=== PATIENT | female | born 2005 | race Two or more races ===

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

== ENCOUNTER 2025-01-20 15:17 | Emergency (ER) | payer OTHER, SELFPAY ==
[2025-01-20 15:21] VITALS: BP 145/68; PULSE 100; RESP 20; TEMP 36.6; O2SAT 100
--- NOTE | 2025-01-20 16:36 | ED_ITS ---
HPI - General Adult General Chief complaint: Upper Respiratory Infection Stated complaint: Cough Source: patient Mode of arrival: ambulatory Limitations: no limitations History of Present Illness HPI narrative: Patient presents for evaluation of sinus symptoms. Symptom onset yesterday. Symptoms include sinus congestion, mucopurulent discharge from the nares, and hot flashes. She has a history of bacterial sinusitis and this feels similar. No cough, SOB, nausea, vomiting or diarrhea. She does not smoke. No recent sick contacts to her knowledge. Related Data Home Medications ?Medication ?Instructions ?Recorded ?Confirmed ?Last Taken ?Type albuterol sulfate 90 mcg/actuation 2 puff inhalation Q6H PRN 12/16/23 10/25/24 Unknown History aerosol inhaler Shortness Of Breath Or Wheezing Allergies Allergy/AdvReac Type Severity Reaction Status Date / Time ibuprofen Allergy Severe Swelling Verified 01/20/25 15:26 of Lip/Tongue/Throat Review of Systems Review of Systems: CONSTITUTIONAL: Reports hot flashes. Denies chills, or sweats. EYES: Denies visual changes, redness, or discharge. ENT: Reports sinus congestion and mucopurulent discharge in nares. Denies sore throat or otalgia. CARDIOVASCULAR: Denies chest pain, palpitations, or edema. RESPIRATORY: Denies cough or dyspnea. GASTROINTESTINAL: Denies abdominal pain, nausea, vomiting, or diarrhea. GENITOURINARY: Denies dysuria or hematuria. SKIN: Denies rash or itching. MUSCULOSKELETAL: Denies back pain, joint pain, or myalgia. NEUROLOGIC: Denies headache, numbness, dizziness, or weakness. PSYCHIATRIC: Denies anxiety or depression. [facility] Past Medical History Medical History Ear infection UTI (urinary tract infection) Anxiety Hypertension Asthma Surgical History Surgical History No pertinent past surgical history Family History Family History Mother Family history non-contributory Social History Social History Smoking status: Current every day smoker Tobacco type: e-cigarettes/vaping Alcohol intake: current Alcohol use details: social but rare Substance use type: does not use Living arrangements: with family Gender identity (if verbalized by the patient): Female Exam Narrative: GENERAL: Well-appearing, well-nourished, and in no acute distress. HEAD: Normocephalic, atraumatic. EYES: PERRLA and EOMI. ENT: Nares clear, no rhinorrhea or epistaxis. Mucous membranes moist. Oropharynx without tonsillar hypertrophy exudate or other lesions. Bilateral TMs pearly chacon nonbulging NECK: Supple. No adenopathy or masses. No carotid bruits or JVD CHEST: Clear to auscultation. No respiratory distress. No wheezes rales or rhonchi HEART: Regular rate and rhythm. No murmur heard. Normal peripheral pulses. ABDOMEN: Soft, nontender, nondistended, normal active bowel sounds. EXTREMITIES: Normal range of motion. No edema. SKIN: Warm, dry, no rash. NEURO: No focal deficits. Alert and oriented x3. PSYCH: Normal mood and affect. Course Course Emergency Course: This is a 19-year-old female who presented for evaluation of sinus symptoms. She meets criteria for bacterial sinusitis based upon mucopurulent nature of her discharge. Increase hydration. [id number] agents for symptom management. Follow up with primary provider. Go to the ER for worsening symptoms. Patient in agreement with plan of care Level of Care: Express Care Visit Vital Signs Vital signs: Vital Signs Temperature 36.6 C 01/20/25 15:21 Pulse Rate 100 01/20/25 15:21 Respiratory Rate 20 01/20/25 15:21 Blood Pressure 145/68 H 01/20/25 15:21 Pulse Oximetry 100 01/20/25 15:21 Oxygen Delivery Room Air 01/20/25 15:21 Temperature 36.6 C 01/20/25 15:21 Pulse Rate 100 01/20/25 15:21 Respiratory Rate 20 01/20/25 15:21 Blood Pressure 145/68 H 01/20/25 15:21 Pulse Oximetry 100 01/20/25 15:21 Oxygen Delivery Room Air 01/20/25 15:21 Medical Decision Making Vital Signs Vital Signs: Vital Signs Temperature 36.6 C 01/20/25 15:21 Pulse Rate 100 01/20/25 15:21 Respiratory Rate 20 01/20/25 15:21 Blood Pressure 145/68 H 01/20/25 15:21 Pulse Oximetry 100 01/20/25 15:21 Oxygen Delivery Room Air 01/20/25 15:21 Temperature 36.6 C 01/20/25 15:21 Pulse Rate 100 01/20/25 15:21 Respiratory Rate 20 01/20/25 15:21 Blood Pressure 145/68 H 01/20/25 15:21 Pulse Oximetry 100 01/20/25 15:21 Oxygen Delivery Room Air 01/20/25 15:21 Discharge Plan Discharge Clinical Impression: Sinusitis Patient Disposition: Home, Self-Care Condition: Stable Instructions: Antibiotic Form, Sinusitis (ED) Patient Language: Japanese Prescriptions: New amoxicillin-pot clavulanate 875-125 mg tablet 1 tablet PO Q12H Qty: 20 0RF No Action albuterol sulfate 90 mcg/actuation HFA aerosol inhaler 2 puff INHALATION Q6H PRN (Reason: Shortness Of Breath Or Wheezing) Follow-up/Referrals: Johanna Cannon DO [Physician] - Stand Alone Forms: Work/School Release IP Time of Disposition: 16:31
--- OUTSIDE RECORDS SUMMARY | 2025-01-20 17:47 | XMS_ITS | Continuity of Care Document ---
Author Name Radha Rivera Address [address] [place] [address] Organization Unknown Address [address] [place] [address] Medications No known medications Problems No known problems
--- OUTSIDE RECORDS SUMMARY | 2025-01-20 17:47 | XMS_ITS | Clinical Summary ---
Author Organization [facility] Address [address] [place] [address] Care Team Providers Care Tube Drawer Name Role Phone Unknown, Notinfile Primary Care Provider Unavail able Allergies Active Allergy Reactions Criticality Noted Date Comments Ibuprofen Vomiting Low 08/23/2024 Medications albuterol HFA (PROVENTIL HFA,VENTOLIN HFA,PROAIR HFA) 90 mcg/actuation inhaler Inhale 2 puffs every 4 (four) hours as needed for wheezing 1 each 10/31/2024 10/31/20 25 Active Active Problems No known active problems Encounters Date Type Department Care Team Description 10/31/2024 2:56 PM ARTS MANAGER - 10/31/2024 5:02 PM ARTS MANAGER Emergency [facility] Emergency Department 1 [place] [address] Chest pain, unspecified type (Primary Dx) Discharge Disposition: Discharge to home or self care 10/31/2024 12:45 PM ARTS MANAGER Office Visit [facility] [place] [address] [place] [address] Anum Gutierrez NP Chest pain, unspecified type (Primary Dx) from Last 3 Months Medical History Medical History Date Comments Asthma Social History Tobacco Use Types Packs/Day Years Used Date Smoking Tobacco: Never Assessed Personal Safety Answer Date Recorded Have you ever been in or are you currently in a harmful physical or emotional relationship or is someone making you feel afraid or unsafe? Denies 10/31/2024 Comments No Sex and Gender Information Value Date Recorded Sex Assigned at Not on file Legal Sex Female 8:19 PM CDT Gender Identity Female 09/01/2022 11:19 PM CDT Sexual Orientation Not on file Obstetrics History Growth Chart Information Age Height Weight Ewpxvl-ksp-[id number] th Percentile BMI Percentile Head Circum Head Circum Percentile Date 18 years 167.6 cm (5' 6 ) 99.8 kg (220 lb) 97.30%* 2023 18 years 167.6 cm (5' 6 ) 90.7 kg (200 lb) 95.80%* 2023 16 years 167.6 cm (5' 6 ) 81.6 kg (180 lb) 94.57%* 2021 * [facility] (Girls, 2-20 Years) Last Filed Vital Signs Vital Sign Reading Time Taken Comments Blood Pressure 121/72 10/31/2024 4:01 PM ARTS MANAGER Pulse 72 10/31/2024 4:01 PM ARTS MANAGER Temperature 36.1 C (97 F) 10/31/2024 4:01 PM ARTS MANAGER Respiratory Rate 18 10/31/2024 4:01 PM ARTS MANAGER Oxygen Saturation 98% 10/31/2024 4:01 PM ARTS MANAGER Inhaled Oxygen Concentration - - Weight 99.8 kg (220 lb) 10/31/2024 11:19 AM ARTS MANAGER Height 167.6 cm (5' 6 ) 10/31/2024 11:19 AM ARTS MANAGER Body Mass Index 35.51 10/31/2024 11:19 AM ARTS MANAGER Body Mass Index Percentile 97.30% 10/31/2024 11: 19 AM ARTS MANAGER Growth Chart: [facility] (Girls, 2- 20 Years) Plan of Treatment Health Maintenance Due Date Last Done Comments Depression Screening 2005 Hepatitis C Screening 2005 DTaP/Tdap/Td Vaccine (1 - Tdap) 2016 Varicella Vaccines (1 of 2 - 13+ 2-dose series) 2018 HPV Vaccines (1 - 3-dose series) 2020 Meningococcal B Vaccine (1 o f 2 - Standard) 2021 Hepatitis B Screening 2023 Regular Well Visit/Exam 18-64 2023 Influenza Vaccine (#1) 2024 Pneumococcal vaccine <65 (1 of 2 - PCV) 2024 Meningococcal Vaccine Aged Out No gretchen tonia eligible based on patient's age to complete this topic Procedures Procedure Name Priority Date/Time Associated Diagnosis Comments EGFR STAT 10/31/2024 3:57 PM ARTS MANAGER COMPREHENSIVE METABOLIC PANEL STAT 10/31/2024 3:57 PM ARTS MANAGER TROPONIN T HIGH-SENSITIVITY SERIES (BASELINE, 2HR, 4HR, 6HR) STAT 10/31/2024 3:57 PM ARTS MANAGER DIFFERENTIAL AUTO STAT 10/31/2024 12: 37 PM ARTS MANAGER CBC WITH AUTO DIFFERENTIAL STAT 10/31/2024 12:37 PM ARTS MANAGER XR CHEST PA LATERAL 2 VIEWS ED 10/31/2024 11:31 AM ARTS MANAGER ECG 12-LEAD STAT 10/31/2024 11:14 AM ARTS MANAGER from Last 3 Months Results * Troponin T high-sensitivity series (baseline, 2hr, 4hr, 6hr) (10/31/2024 3:57 PM ARTS MANAGER) Trop T hs <6 <=14 ng/L Comment: Interpretive Data For further hscTnT resources including the diagnostic algorithm and an aid in interpretation, copy and paste this link: https://nrl.testcatalog.org/show/hsTrop Current Interpretive Data last revised 2020. Blood 10/31/2024 3:57 PM ARTS MANAGER 10/31/2024 4:00 PM ARTS MANAGER us Santiago Hernandez AUTOMATIC DISPENSER MECHANIC LAB BLOOD ORDERABLES Final Result [facility] 1 [facility] Department [place] [address] * eGFR (10/31/2024 3:57 PM ARTS MANAGER) eGFR 78 >=60 mL/min/1. 73 m2 Comment: Interpretive Data Reference Interval Normal >/= 90 mL/min/1.73m2 Mildly decreased* 60 - 89 mL/min/1.73m2 Mildly to moderately decreased 45 - 59 mL/min/1.73m2 Moderately to severely decreased 30 - 44 mL/min/1.73m2 Severely decreased 15 - 29 mL/min/1.73m2 Kidney Failure < 15 mL/min/1.73m2 *Relative to young adult level Estimated glomerular filtration rate is determined by the 2020 CKD-EPI equation recommended by the National Kidney Foundation (A Unifying Approach to GFR Estimation: Recommendations of the NKF-ASK Task Force on Reassessing the Inclusion of Race in Diagnosing Kidney Disease, JASN 202). The CKD-EPI equation should not be used for patients with unstable renal function and has not been validated in children and those over 70. Current interpretive data was last reviewed 2021. Blood 10/31/2024 3:57 PM ARTS MANAGER 10/31/2024 4:00 PM ARTS MANAGER Santiago Hernandez NP LAB BLOOD ORDERABLES Final Result [facility] ([place]) 1 [facility] Department [place] [address] * (ABNORMAL) Comprehensive metabolic panel (10/31/2024 3:57 PM ARTS MANAGER) Sodium 138 135 - 145 mmol/L Potassium, pl 3.8 3.3 - 4.9 mmol/L [facility] Chloride 103 97 - 110 mmol/L [facility] ([facility]) CO2 23 22 - 32 mmol/L [facility]) Anion gap 12 2 - 15 mmol/L [facility] BUN 9 6 - 25 mg/dL [facility] Creatinine 1.06(H) 0.40 - 1.00 mg/dL [facility] ([facility]) Glucose 114 70 - 199 mg/dL [facility] ([facility]) Comment: Interpretive Data Fasting glucose >/= 126 mg/dl is diagnostic for diabetes. Fasting is defined as no caloric intake for at least 8 hours. Fasting glucose between 100 mg/dl to 125 mg/dl is diagnostic of prediabetes. In a patient with classic symptoms of hyperglycemia or hyperglycemic crisis, a random glucose >/= 200 mg/dl is diagnostic for diabetes. In the absence of unequivocal hyperglycemia, results should be confirmed by repeat testing. The classification and Diagnosis of Diabetes Diabetes Care 2021; 46: S19-S40. Current interpretive data was last revised 2022. Calcium 9.5 8.5 - 10.3 mg/dL [facility] ([facility]) Bilirubin, total 0.2 0.1 - 1.2 mg/dL [facility] ([place]) Protein, pl 7.3 6.5 - 8.5 g/dL [facility] ([place]) Albumin 4.2 3.5 - 5.0 g/dL [facility] ([place]) Alk phos 84 70 - 260 Units/L [facility] ([place]) ALT 17 7 - 45 Units/L [facility] ([place]) AST 16 10 - 45 Units/L [facility] ([place]) Blood 10/31/2024 3:57 PM ARTS MANAGER 10/31/2024 4:00 PM ARTS MANAGER Santiago Hernandez NP LAB BLOOD ORDERABLES Final Result [facility] 1 [facility] Department [place] [address] * (ABNORMAL) Differential, auto (10/31/2024 12:37 PM ARTS MANAGER) Neutrophil abs 5.9 1.5 - 6.5 K/cumm Imm gran abs 0.1 0.0 - 0.1 K/cumm [facility] ([facility]) Lymphocyte abs 2.0 0.8 - 3.3 K/cumm [facility] ([place]) Monocyte abs 0.7 0.2 - 0.8 K/cumm [facility] ([place]) Eosinophil abs 0.6(H) 0.0 - 0.5 K/cumm [facility] ([place]) Basophil abs 0.1 0.0 - 0.1 K/cumm [facility] ([facility]) Neutrophil pct 63.6 % [facility] ([facility]) Comment: Interpretive Data Percent cell count reference ranges are not reported, since discordance with absolute values may lead to misinterpretation of CBC data. Current Interpretive Data was last revised on 2018. Imm gran pct 0.6 % [facility] ([facility]) Comment: Interpretive Data Percent cell count reference ranges are not reported, since discordance with absolute values may lead to misinterpretation of CBC data. Current Interpretive Data was last revised on 2018. Lymphocyte pct 21.8 % [facility] ([facility]) Comment: Interpretive Data Percent cell count reference ranges are not reported, since discordance with absolute values may lead to misinterpretation of CBC data. Current Interpretive Data was last revised on 2018. Monocyte pct 7.2 % [facility] ([place]) Comment: Interpretive Data Percent cell count reference ranges are not reported, since discordance with absolute values may lead to misinterpretation of CBC data. Current Interpretive Data was last revised on 2018. Eosinophil pct 5.9 % [facility] ([facility]) Comment: Interpretive Data Percent cell count reference ranges are not reported, since discordance with absolute values may lead to misinterpretation of CBC data. Current Interpretive Data was last revised on 2018. Basophil pct 0.9 % [facility] ([place]) Comment: Interpretive Data Percent cell count reference ranges are not reported, since discordance with absolute values may lead to misinterpretation of CBC data. Current Interpretive Data was last revised on 2018. Blood 10/31/2024 12:3 7 PM ARTS MANAGER 10/31/2024 12:40 PM ARTS MANAGER us Bhupinder Mahan MD LAB BLOOD ORDERABLES Final Result [facility] ([place]) 1 [facility] Department [place] [address] * CBC with auto differential (10/31/2024 12:37 PM ARTS MANAGER) WBC 9.3 3.8 - 9.9 K/cumm Hgb 12.6 11.9 - 15.5 g/dL [facility] ([place]) Hct 38.8 35.6 - 45.5 % [facility] ([facility]) Plt 337 150 - 400 K/cumm [facility] ([facility]) MPV 10.7 9.1 - 12.3 fL [facility] ([facility]) RBC 4.65 3.90 - 5.20 M/cumm [facility] ([place]) MCV 83.4 81.3 - 96.4 fL [facility] ([place]) MCH 27.1 27.1 - 33.3 pg [facility] ([facility]) MCHC 32.5 32.3 - 35.7 g/dL [facility] ([place]) RDW CV 13.9 11.1 - 14.9 % [facility] ([place]) RDW SD 42.1 35.7 - 48.1 fL [facility] ([place]) NRBC abs 0.00 0.00 - 0.01 K/cumm [facility] ([facility]) Blood (Blood, Venous) 10/31/2024 12:37 PM ARTS MANAGER 10/31/2024 12:40 PM ARTS MANAGER us Bhupinder Mahan MD LAB BLOOD ORDERABLES Final Result Performing Organization Address City/State/[facility] Co de Phone Number [facility] ([place]) 1 [facility] Department [place] [address] * XR Chest PA Lateral 2 Views (10/31/2024 11:31 AM ARTS MANAGER) Anatomical Region Laterality Modality Body, Chest N/A Computed Radiogr aphy 10/31/2024 11:5 6 AM ARTS MANAGER Narrative 10/31/2024 11:58 AM ARTS MANAGER EXAM DESCRIPTION: XR CHEST PA LATERAL 2 VIEWS REASON FOR STUDY: chest pain sudden chest pain this morning approx 0145 and it felt like heartburn. States a second sudden sharp pain at 0840 over whole chest. States she was at work when it happened. States since it happened the second time it has stayed sharp feeling and some pain in L side of upper back. TECHNIQUE: 2 radiographic view(s) of the chest. COMPARISON: 09/01/2022 FINDINGS: LUNGS: No focal opacity, pleural effusion, or pneumothorax. HEART/MEDIASTINUM: Cardiac silhouette normal in size. Mediastinal and hilar contours appear normal. LINES/TUBES: None. BONES: No acute osseous abnormality. IMPRESSION: No acute cardiopulmonary abnormality. THIS IS AN ELECTRONICALLY VERIFIED FINAL REPORT 10/31/2024 11:58 AM - Electronically signed by Jamie Plasencia M.D. KR: YUE Report ID: [id number] Reading Location: [id number] Procedure Note Jamie Plasencia MD - 10/31/2024 EXAM DESCRIPTION: XR CHEST PA LATERAL 2 VIEWS REASON FOR STUDY: chest pain sudden chest pain this morning approx 0145 and it felt like heartburn. States a second sudden sharp pain at 0840 over whole chest. States she wasat work when it happened. States since it happened the second time it hasstayed sharp feeling and some pain in L side of upper back. TECHNIQUE: 2 radiographic view(s) of the chest. COMPARISON: 09/01/2022 FINDINGS: LUNGS: No focal opacity, pleural effusion, or pneumothorax. HEART/MEDIASTINUM: Cardiac silhouette normal in size. Mediastinal andhilar contours appear normal. LINES/TUBES: None. BONES: No acute osseous abnormality. IMPRESSION: No acute cardiopulmonary abnormality. THIS IS AN ELECTRONICALLY VERIFIED FINAL REPORT 10/31/2024 11:58 AM - Electronically signed by Jamie Plasencia M.D. KR: YUE Report ID: [id number] Reading Location: [place] [id number] Bhupinder Mahan MD IMG XR PROCEDURES Final Res ult * ECG 12 lead (10/31/2024 11:14 AM ARTS MANAGER) 10/31/2024 11:1 4 AM ARTS MANAGER Narrative [facility] - 10/31/2024 12:50 PM ARTS MANAGER Vent Rate: 77 bpm RR Interval: 778 msec [place] Interval: 125 msec QRS Duration: 86 msec QT Interval: 354 msec QTC Interval: 385 msec P-R-T Exmore: 44 - 64 - 37 degrees IMPRESSION: SINUS RHYTHM WITH SINUS ARRHYTHMIA NORMAL ECG Electronically Signed By: Hernando Burgess MD Bhupinder Mahan MD ECG ORDERABLES Final Resul t [facility] from Last 3 Months Insurance [facility] HMO [facility] H[facility] Care Teams Tube Drawer Relationship Specialty Start Date End Date Unknown, Notinfile PCP - General 09/01/22
--- OUTSIDE RECORDS SUMMARY | 2025-01-20 17:47 | XMS_ITS | Continuity of Care Document ---
Author Name Radha Rivera Address [address] [place] [address] Organization Unknown Address [address] [place] [address] Medications No known medications Problems No known problems
--- OUTSIDE RECORDS SUMMARY | 2025-01-20 17:47 | XMS_ITS | Referral Summary ---
Author Organization [facility] Address [address] [place] [address] Care Team Providers Care Mobile Patrol Officer Name Role Phone Unknown, Notinfile Primary Care Provider Unavail able Encounters Date Type Department Care Team Description 10/31/2024 2:56 PM OCCASIONAL CAREGIVER - 10/31/2024 5:02 PM OCCASIONAL CAREGIVER Emergency [facility] Emergency Department 1 [place] [address] Chest pain, unspecified type (Primary Dx) Discharge Disposition: Discharge to home or self care 10/31/2024 12:45 PM OCCASIONAL CAREGIVER Office Visit [facility] [place] [address] [place] [place] [phone] Anum Gutierrez NP Chest pain, unspecified type (Primary Dx) from Last 3 Months Allergies Active Allergy Reactions Criticality Noted Date Comments Ibuprofen Vomiting Low 08/23/2024 Medications albuterol HFA (PROVENTIL HFA,VENTOLIN HFA,PROAIR HFA) 90 mcg/actuation inhaler Inhale 2 puffs every 4 (four) hours as needed for wheezing 1 each 10/31/2024 10/31/20 25 Active Active Problems No known active problems Social History Tobacco Use Types Packs/Day Years [...] PM CDT Sexual Orientation Not on file Last Filed Vital Signs Vital Sign Reading Time Taken Comments Blood Pressure 121/72 10/31/2024 4:01 PM OCCASIONAL CAREGIVER Pulse 72 10/31/2024 4:01 PM OCCASIONAL CAREGIVER Temperature 36.1 C (97 F) 10/31/2024 4:01 PM OCCASIONAL CAREGIVER Respiratory Rate 18 10/31/2024 4:01 PM OCCASIONAL CAREGIVER Oxygen Saturation 98% 10/31/2024 4:01 PM OCCASIONAL CAREGIVER Inhaled Oxygen Concentration - - Weight 99.8 kg (220 lb) 10/31/2024 11:19 AM OCCASIONAL CAREGIVER Height 167.6 cm (5' 6 ) 10/31/2024 11:19 AM OCCASIONAL CAREGIVER Body Mass Index 35.51 10/31/2024 11:19 AM OCCASIONAL CAREGIVER Body Mass Index Percentile 97.30% 10/31/2024 11: 19 AM OCCASIONAL CAREGIVER Growth Chart: [facility] (Girls, 2- 20 Years) Plan of Treatment Not on file Procedures Procedure Name Priority Date/Time Associated Diagnosis Comments EGFR STAT 10/31/2024 3:57 PM OCCASIONAL CAREGIVER COMPREHENSIVE METABOLIC PANEL STAT 10/31/2024 3:57 PM OCCASIONAL CAREGIVER TROPONIN T HIGH-SENSITIVITY SERIES (BASELINE, 2HR, 4HR, 6HR) STAT 10/31/2024 3:57 PM OCCASIONAL CAREGIVER DIFFERENTIAL AUTO STAT 10/31/2024 12: 37 PM OCCASIONAL CAREGIVER CBC WITH AUTO DIFFERENTIAL STAT 10/31/2024 12:37 PM OCCASIONAL CAREGIVER XR CHEST PA LATERAL 2 VIEWS ED 10/31/2024 11:31 AM OCCASIONAL CAREGIVER ECG 12-LEAD STAT 10/31/2024 11:14 AM OCCASIONAL CAREGIVER from Last 3 Months Results * Troponin T high-sensitivity series (baseline, 2hr, 4hr, 6hr) (10/31/2024 3:57 PM OCCASIONAL CAREGIVER) Trop T hs <6 <=14 ng/L Comment: Interpretive Data For further hscTnT resources including the diagnostic algorithm and an aid in interpretation, copy and paste this link: https://nrl.testcatalog.org/show/hsTrop Current Interpretive Data last revised 2020. Blood 10/31/2024 3:57 PM OCCASIONAL CAREGIVER 10/31/2024 4:00 PM OCCASIONAL CAREGIVER us Santiago Hernandez NP LAB BLOOD ORDERABLES Final Result [facility] ([place]) 1 [facility] [address] * eGFR (10/31/2024 3:57 PM OCCASIONAL CAREGIVER) eGFR 78 >=60 mL/min/1. 73 m2 Comment: [...] of Race in Diagnosing Kidney Disease, JASN 2020). The CKD-EPI equation should not be used for patients with unstable renal function and has not been validated in children and those over 70. Current interpretive data was last reviewed 2021. Blood 10/31/2024 3:57 PM OCCASIONAL CAREGIVER 10/31/2024 4:00 PM OCCASIONAL CAREGIVER us Santiago Hernandez NP LAB BLOOD ORDERABLES Final Result [facility] ([place]) 1 [facility] [address] * (ABNORMAL) Comprehensive metabolic panel (10/31/2024 3:57 PM OCCASIONAL CAREGIVER) Sodium 138 135 - 145 mmol/L Potassium, pl 3.8 3.3 - 4.9 mmol/L [facility] ([facility]) Chloride 103 97 - 110 mmol/L [facility] ([facility]) CO2 23 22 - 32 mmol/L [facility] ([facility]) Anion gap 12 2 - 15 mmol/L [facility] ([place]) BUN 9 6 - 25 mg/dL [facility] ([facility]) Creatinine 1.06(H) 0.40 - 1.00 mg/dL [facility] ([facility]) Glucose 114 70 - 199 mg/dL [facility] ([facility]) Comment: Interpretive Data Fasting glucose [...] [facility] ([facility]) Blood 10/31/2024 3:57 PM OCCASIONAL CAREGIVER 10/31/2024 4:00 PM OCCASIONAL CAREGIVER us Santiago Hernandez NP LAB BLOOD ORDERABLES Final Result [facility] 1 [facility] Department [place] [address] * (ABNORMAL) Differential, auto (10/31/2024 12:37 PM OCCASIONAL CAREGIVER) Neutrophil abs 5.9 1.5 - 6.5 K/cumm [...] on 2018. Blood 10/31/2024 12:3 7 PM OCCASIONAL CAREGIVER 10/31/2024 12:40 PM OCCASIONAL CAREGIVER us Bhupinder Mahan MD LAB BLOOD ORDERABLES Final Result [facility] ([facility]) 1 [facility] Department [place] [address] * CBC with auto differential (10/31/2024 12:37 PM OCCASIONAL CAREGIVER) WBC 9.3 3.8 - 9.9 K/cumm Hgb 12.6 11.9 - 15.5 g/dL [facility] ([facility]) Hct 38.8 35.6 - 45.5 % [facility] ([facility]) Plt 337 150 - 400 K/cumm [facility] ([facility]) MPV 10.7 9.1 - 12.3 fL [facility] ([facility]) RBC 4.65 3.90 - 5.20 M/cumm [facility] ([facility]) MCV 83.4 81.3 - 96.4 fL [facility] ([facility]) MCH 27.1 27.1 - 33.3 pg [facility] ([facility]) MCHC 32.5 32.3 - 35.7 g/dL [facility] ([place]) RDW CV 13.9 11.1 - 14.9 % [facility] ([place]) RDW SD 42.1 35.7 - 48.1 fL [facility] ([facility]) NRBC abs 0.00 0.00 - 0.01 K/cumm [facility] ([facility]) Blood (Blood, Venous) 10/31/2024 12:37 PM OCCASIONAL CAREGIVER 10/31/2024 12:40 PM OCCASIONAL CAREGIVER us Bhupinder Mahan MD LAB BLOOD ORDERABLES Final Result [facility] ([place]) 1 [facility] Department [place] [address] * XR Chest PA Lateral 2 Views (10/31/2024 11:31 AM OCCASIONAL CAREGIVER) Anatomical Region Laterality Modality Body, Chest N/A Computed Radiogr aphy 10/31/2024 11:5 6 AM OCCASIONAL CAREGIVER Narrative 10/31/2024 11:58 AM OCCASIONAL CAREGIVER EXAM DESCRIPTION: XR CHEST PA LATERAL 2 [...] Jamie Plasencia M.D. KR: YUE Report ID: [id number] Reading Location: [id number] Procedure Note Jamie Plasencia MD - 10/31/2024 [...] 10/31/2024 11:58 AM - Electronically signed by Jamiebogdan Plasencia M.D. KR: KR Report ID: [id number] Reading Location: [id number] Bhupinder Mahan MD IMG XR PROCEDURES Final Res ult * ECG 12 lead (10/31/2024 11:14 AM OCCASIONAL CAREGIVER) 10/31/2024 11:1 4 AM OCCASIONAL CAREGIVER Narrative [facility] - 10/31/2024 12:50 PM OCCASIONAL CAREGIVER Vent Rate: 77 bpm RR Interval: 778 msec SC Interval: 125 msec QRS Duration: 86 msec QT Interval: 354 msec QTC Interval: 385 msec P-R-T Abbott: 44 - 64 - 37 degrees IMPRESSION: SINUS RHYTHM WITH SINUS ARRHYTHMIA NORMAL ECG Electronically Signed By: Hernando Burgess MD Bhupinder Mahan MD ECG ORDERABLES Final Resul t [facility] from Last 3 Months [facility] Care Teams Mobile Patrol Officer Relationship Specialty Start Date End Date Unknown, Notinfile PCP - General 09/01/22
== END 2025-01-20 16:42 | disposition home or self-care (01) ==
PROVIDERS: Emergency Provider Nurse Practitioner
DX: J32.9 Chronic sinusitis, unspecified (principal); F17.290 Nicotine dependence, other tobacco product, uncomplicated; I10 Essential (primary) hypertension; J45.909 Unspecified asthma, uncomplicated
CPT/HCPCS: 99213; G0463

== ENCOUNTER 2025-06-22 08:12 | Emergency (ER) | payer SELFPAY ==
--- OUTSIDE RECORDS SUMMARY | 2025-06-22 08:17 | XMS_ITS | Clinical Summary ---
Author Organization [facility] Address [address] [place] [address] Care Team Providers Care Golf Shoe Spike Assembler Name Role Phone Unknown, Notinfile Primary Care Provider Unavail able Allergies Active Allergy Reactions Criticality Noted Date Comments Ibuprofen Vomiting Low 08/23/2024 Medications albuterol HFA (PROVENTIL HFA,VENTOLIN HFA,PROAIR HFA) 90 mcg/actuation inhaler Inhale 2 puffs every 4 (four) hours as needed for wheezing 1 each 10/31/2024 10/31/20 25 Active Active Problems No known active problems Medical History Medical History Date Comments Asthma [...] History Growth Chart Information Age Height Weight Iwohch-blm-stpu th Percentile BMI Percentile Head Circum Head Circum Percentile Date 18 years 167.6 cm (5' 6) 99.8 kg (220 lb) 97.30%* 2023 18 years 167.6 cm (5' 6) 90.7 kg (200 lb) 95.80%* 2023 16 years 167.6 cm (5' 6) 81.6 kg (180 lb) 94.57%* 2021 * CDC (Girls, 2-20 Years) Last Filed Vital Signs Vital Sign Reading Time Taken Comments Blood Pressure 121/72 10/31/2024 4:01 PM ARC AIR OPERATOR Pulse 72 10/31/2024 4:01 PM ARC AIR OPERATOR Temperature 36.1 C (97 F) 10/31/2024 4:01 PM ARC AIR OPERATOR Respiratory Rate 18 10/31/2024 4:01 PM ARC AIR OPERATOR Oxygen Saturation 98% 10/31/2024 4:01 PM ARC AIR OPERATOR Inhaled Oxygen Concentration - - Weight 99.8 kg (220 lb) 10/31/2024 11:19 AM ARC AIR OPERATOR Height 167.6 cm (5' 6) 10/31/2024 11:19 AM ARC AIR OPERATOR Body Mass Index 35.51 10/31/2024 11:19 AM ARC AIR OPERATOR Body Mass Index Percentile 97.30% 10/31/2024 11: 19 AM ARC AIR OPERATOR Growth Chart: CDC (Girls, 2- 20 Years) Plan of Treatment Health Maintenance Due Date Last Done Comments Depression Screening 2005 Hepatitis C Screening 2005 DTaP/Tdap/Td Vaccine (1 - Tdap) 2016 Varicella Vaccines (1 of 2 - 13+ 2-dose series) 2018 HPV Vaccines (1 - 3-dose series) 2020 Meningococcal B Vaccine (1 o f 2 - Standard) 2021 Hepatitis B Screening 2023 Regular Well Visit/Exam 18-64 2023 Pneumococcal vaccine <65 (1 of 2 - PCV) 2024 Influenza Vaccine (#1) 2025 Meningococcal Vaccine Aged Out No gretchen tonia eligible based on patient's age to complete this topic Insurance [facility] Care Teams Golf Shoe Spike Assembler Relationship Specialty Start Date End Date Unknown, Notinfile PCP - General 09/01/22
--- OUTSIDE RECORDS SUMMARY | 2025-06-22 08:17 | XMS_ITS | Referral Summary ---
Author Organization [facility] Address [address] [place] [address] Care Team Providers Care Clean Rice Grader And Reel Tender Name Role Phone Unknown, Notinfile Primary Care [...] Comments Blood Pressure 121/72 10/31/2024 4:01 PM OFFICE NURSE Pulse 72 10/31/2024 4:01 PM OFFICE NURSE Temperature 36.1 C (97 F) 10/31/2024 4:01 PM OFFICE NURSE Respiratory Rate 18 10/31/2024 4:01 PM OFFICE NURSE Oxygen Saturation 98% 10/31/2024 4:01 PM OFFICE NURSE Inhaled Oxygen Concentration - - Weight 99.8 kg (220 lb) 10/31/2024 11:19 AM OFFICE NURSE Height 167.6 cm (5' 6) 10/31/2024 11:19 AM OFFICE NURSE Body Mass Index 35.51 10/31/2024 11:19 AM OFFICE NURSE Body Mass Index Percentile 97.30% 10/31/2024 11: 19 AM OFFICE NURSE Growth Chart: CDC (Girls, 2- 20 Years) Plan of Treatment Not on file Insurance [facility] H[facility] Care Teams Clean Rice Grader And Reel Tender Relationship Specialty Start Date End Date Unknown, Notinfile PCP - General 09/01/22
[2025-06-22 08:18] VITALS: BP 131/70; PULSE 86; RESP 20; TEMP 36.7; O2SAT 100
[2025-06-22 08:38] LABS: EDUAAPPEAR Cloudy; EDUABILI Negative (Negative); EDUABLOOD 3+ (Negative); EDUACOLOR1 Yellow; EDUAGLUCOSE Negative (Negative); EDUAKETONE Negative (Negative); EDUALEUKO 2+ (Negative); EDUANITRATE Positive (Negative); EDUAPH 6.0; EDUAPROTEIN 3+ (Negative); EDUASPGRAVITY 1.030; EDUAUROBILI 0.2
--- NOTE | 2025-06-22 08:39 | ED_ITS ---
HPI - Female Genitourinary General Chief complaint: Urogenital-Female Stated complaint: poss UTI History of Present Illness HPI Narrative: patient is a 19-year-old female, past medical history significant for recurrent UTI, anxiety, depression and hypertension, presents to [facility] with 2 day history of dysuria, frequency, urgency and some hesitancy. She denies associated flank pain, fevers, nausea vomiting or diarrhea. She notes that she was recently on cephalexin for UTI approximately 3 weeks ago, completing antibiotics as prescribed with resolution of her symptoms however they have since returned. She denies vaginal discharge or STI concerns. She has no concerns of . She denies any additional associated symptoms or modifying factors. Related Data Home Medications ?Medication ?Instructions ?Recorded ?Confirmed ?Last Taken ?Type albuterol sulfate 90 mcg/actuation 2 puff inhalation Q6H PRN 12/16/23 10/25/24 Unknown History aerosol inhaler Shortness Of Breath Or Wheezing Allergies Allergy/AdvReac Type Severity Reaction Status Date / Time ibuprofen Allergy Severe Swelling Verified 01/20/25 15:26 of Lip/Tongue/Throat Review of Systems Genitourinary: Genitourinary: Reports as per [facility] Past Medical History Medical History Ear infection UTI (urinary tract infection) Anxiety Hypertension Asthma Surgical History Surgical History No pertinent past surgical history Family History Family History Mother Family history non-contributory Social History Social History Smoking status: Current every day smoker Tobacco type: e-cigarettes/vaping Alcohol intake: current Alcohol use details: social but rare Substance use type: does not use Living arrangements: with family Gender identity (if verbalized by the patient): Female Exam Const: General: cooperative, healthy appearing, well nourished and obese Orientation/consciousness: oriented to person, oriented to place and oriented to time Limitations: no limitations HENMT: Head: normal to inspection Ears: hearing grossly normal bilaterally and external ears normal Face/Nose/Sinus: Normal external nose present Face and sinus: normal facial exam and face symmetric Mouth: Yes Normal oral and palatal mucosa present, Yes lip normal and Yes tongue normal Teeth and gingiva: dentition normal Throat: posterior oropharynx normal Eyes: General: appearance normal, both eyes and all related structures Visual Avina: normal visual avina by confrontation Alignment and Position: alignment normal Conjunctivae: conjunctivae normal Sclera: sclerae normal Cornea: corneas normal Neck: Neck: normal visual inspection, full ROM and no meningeal signs Resp: Effort & Inspection: normal respiratory effort and able to speak in complete sentences Auscultation: clear to auscultation bilaterally Cardio: Jugular venous distension: no JVD Rate: regular rate Rhythm: regular rhythm Heart sounds: S1 normal heart sound present and S2 normal heart sound present Peripheral pulses: Peripheral pulses 2+ throughout : OB/external & speculum: Deferred OB/external & speculum exam Back/Spine/Pelvis: Back: no CVA tenderness Skin: General skin exam: normal color and no rashes or lesions noted Neuro: General: oriented to person, oriented to place, oriented to time and patient oriented x3 Cranial nerves: Yes CN's II-XII intact bilaterally Gait exam (Neuro): Normal gait present Motor exam (neuro): 5/5 motor strength present throughout Course Course Emergency Course: Patient's urinalysis concerning for UTI. Will reflex for culture. Patient was most recently treated with cephalexin prior to that Augmentin for UTI. Prior urine cultures are reviewed without active growth. No sensitivity report is shown. Will treat with Cipro she completed cephalexin within the last 30 days. Patient is encouraged to follow-up with her PCP as she may require a urology referral given her recurrent UTI history. She is encouraged to proceed to the ER if she develops fevers, flank pain or vomiting. With any concerns or condition is worsening. She verbalized understanding she is agreeable to discharge plan of care Level of Care: Express Care Visit ([id number]) Vital Signs Vital signs: Vital Signs Temperature 36.7 C 06/22/25 08:18 Pulse Rate 86 06/22/25 08:18 Respiratory Rate 20 06/22/25 08:18 Blood Pressure 131/70 06/22/25 08:18 Pulse Oximetry 100 06/22/25 08:18 Oxygen Delivery Room Air 06/22/25 08:18 Temperature 36.7 C 06/22/25 08:18 Pulse Rate 86 06/22/25 08:18 Respiratory Rate 20 06/22/25 08:18 Blood Pressure 131/70 06/22/25 08:18 Pulse Oximetry 100 06/22/25 08:18 Oxygen Delivery Room Air 06/22/25 08:18 MDM - Female Genitourinary MDM Narrative Medical decision making narrative: differential diagnosis include: acute cystitis, pyelonephritis, renal colic Plan: Urine culture, Cipro b.i.d. for 7 days Differential Diagnosis Differential diagnosis: Likely urinary tract infection and other ( see above) Lab Data Labs: Lab Results 06/22/25 Range/Units 08:26 POC Urine Color Yellow POC Urine Clarity Cloudy POC Urine pH 6.0 POC Ur Specif [place] 1.030 POC Urine Protein 3+ (Negative) POC Ur Glucose (UA) Negative (Negative) POC Urine Ketones Negative (Negative) POC Urine Blood 3+ (Negative) POC Urine Nitrite Positive (Negative) POC Urine Bilirubin Negative (Negative) POC Urine Urobilinogen 0.2 POC U Leukocyte Esteras 2+ (Negative) Discharge Plan Discharge Clinical Impression: Acute cystitis with hematuria Patient Disposition: Home Condition: Stable Instructions: Antibiotic Form, Urinary Tract Infection in Women (ED) Additional Instructions: PUSH FLUIDS, COMPLETE ANTIBIOTICS PRESCRIBED. FOLLOW-UP CLOSELY WITH YOUR PRIMARY CARE PROVIDER FOLLOWING YOUR VISIT TODAY YOU HAD RECURRENT URINARY TRACT INFECTIONS AND MAY BENEFIT FROM A REFERRAL TO UROLOGY. PROCEED TO THE ER IF YOU DEVELOP FEVERS, FLANK PAIN OR VOMITING THAT PREVENTS YOU FROM KEEPING HER ANTIBIOTICS DOWN. Patient Language: Yi Prescriptions: New ciprofloxacin HCl [Cipro] 500 mg tablet 500 mg PO Q12H Qty: 14 0RF No Action albuterol sulfate 90 mcg/actuation HFA aerosol inhaler 2 puff INHALATION Q6H PRN (Reason: Shortness Of Breath Or Wheezing) Follow-up/Referrals: PHYSICIAN,CLINICAL ACCOUNT MANAGER [Primary Care Provider] - Time of Disposition: 08:48
== END 2025-06-22 08:57 | disposition home or self-care (01) ==
PROVIDERS: Emergency Provider Nurse Practitioner Family
DX: N30.01 Acute cystitis with hematuria (principal); F17.290 Nicotine dependence, other tobacco product, uncomplicated; I10 Essential (primary) hypertension; J45.909 Unspecified asthma, uncomplicated
CPT/HCPCS: 81003; 99213; G0463

== ENCOUNTER 2025-07-03 17:07 | Emergency (ER) | payer SELFPAY ==
[2025-07-03 17:10] VITALS: BP 151/71; PULSE 94; RESP 18; TEMP 36.3; O2SAT 100
--- OUTSIDE RECORDS SUMMARY | 2025-07-03 17:10 | XMS_ITS | Clinical Summary ---
Author Organization [facility] Address [address] [place] [address] Care Team Providers Care Fishing Guide Name Role Phone Unknown, Notinfile Primary Care [...] History Growth Chart Information Age Height Weight Nlvrnn-xew-rqlq th Percentile BMI Percentile Head Circum Head [...] Comments Blood Pressure 121/72 10/31/2024 4:01 PM [employer] Pulse 72 10/31/2024 4:01 PM [employer] Temperature 36.1 C (97 F) 10/31/2024 4:01 PM [employer] Respiratory Rate 18 10/31/2024 4:01 PM [employer] Oxygen Saturation 98% 10/31/2024 4:01 PM [employer] Inhaled Oxygen Concentration - - Weight 99.8 kg (220 lb) 10/31/2024 11:19 AM [employer] Height 167.6 cm (5' 6) 10/31/2024 11:19 AM [employer] Body Mass Index 35.51 10/31/2024 11:19 AM [employer] Body Mass Index Percentile 97.30% 10/31/2024 11: 19 AM [employer] Growth Chart: CDC (Girls, 2- 20 Years) [...] age to complete this topic Insurance AETNA [facility] Care Teams Fishing Guide Relationship Specialty Start Date End Date Unknown, Notinfile PCP - General 09/01/22
--- NOTE | 2025-07-03 17:24 | ED.ABDPAIN ---
HPI - Abdominal Pain General Chief Complaint: Abdominal Pain Stated Complaint: stomach pains/bloating/back pain Time Seen by Provider: 07/03/25 17:24 Source: patient Mode of arrival: ambulatory Limitations: no limitations History of Present Illness HPI narrative: 19 yo F presents with c/o ABD bloating, cramping, missed period. Requesting test. Also reports frequent UTIs but no urinary symptoms. All systems reviewed and negative except as noted above. Related Data Allergies Allergy/AdvReac Type Severity Reaction Status Date / Time ibuprofen Allergy Severe Swelling Verified 01/20/25 15:26 of Lip/Tongue/Throat PMFSH Past Medical History Medical History Ear infection UTI (urinary tract infection) Anxiety Hypertension Asthma Surgical History Surgical History No pertinent past surgical history Family History Family History Mother Family history non-contributory Social History Social History Smoking status: Current every day smoker Tobacco type: e-cigarettes/vaping Alcohol intake: current Alcohol use details: social but rare Substance use type: does not use Living arrangements: with family Gender identity (if verbalized by the patient): Female Comments At time of signature, agree with nursing past medical, surgical, social and family history. There is no relevant family history pertinent to the presenting complaint. Exam Narrative: GENERAL: This is a well-nourished, well-developed patient, in no apparent distress. HEAD: normocephalic, atraumatic. EYES: PERRL. Sclera clear/white. Vision is grossly intact. EARS: External ears normal NOSE: External nose normal NECK: Neck supple, non-tender without lymphadenopathy, masses or thyromegaly. CARDIOVASCULAR: Regular rate and rhythm without murmurs, gallops, or rubs. RESPIRATORY: Clear to auscultation. Breath sounds equal bilaterally. No wheezes, rales, or rhonchi. GASTROINTESTINAL: Abdomen soft, non-tender, nondistended. Bowel sounds are active. No hepato-splenomegaly, or palpable masses. No guarding. SKIN: warm, Dry, intact with no suspicious lesions or rash, good texture and turgor. NEURO: awake, alert, and oriented to person, place and time. There were no obvious focal neurologic abnormalities. EXTREMITIES: No joint tenderness, effusion, or edema noted. Course Course Level of Care: Express Care Visit Vital Signs Vital signs: Vital Signs Temperature 36.3 C L 07/03/25 17:10 Pulse Rate 94 07/03/25 17:10 Respiratory Rate 18 07/03/25 17:10 Blood Pressure 151/71 H 07/03/25 17:10 Pulse Oximetry 100 07/03/25 17:10 Oxygen Delivery Room Air 07/03/25 17:10 Temperature 36.3 C L 07/03/25 17:10 Pulse Rate 94 07/03/25 17:10 Respiratory Rate 18 07/03/25 17:10 Blood Pressure 151/71 H 07/03/25 17:10 Pulse Oximetry 100 07/03/25 17:10 Oxygen Delivery Room Air 07/03/25 17:10 reviewed MDM - Abdominal Pain MDM Narrative Medical decision making narrative: urinalysis normal. negative test. Having normal BMs. recommended follow up with [facility] for control and further evaluation if period does not start within next week. pt is well appearing, nontoxic. Lab Data Labs: Lab Results 07/03/25 Range/Units 17:24 POC Urine Color Yellow POC Urine Clarity Clear POC Urine pH 5.5 POC Ur Specif [place] 1.030 POC Urine Protein Negative (Negative) POC Ur Glucose (UA) Negative (Negative) POC Urine Ketones Negative (Negative) POC Urine Blood Negative (Negative) POC Urine Nitrite Negative (Negative) POC Urine Bilirubin Negative (Negative) POC Urine Urobilinogen 0.2 POC U Leukocyte Esteras Negative (Negative) POC Urine HCG, Qual Negative (Negative) Discharge Plan Discharge Clinical Impression: Urine test negative Patient Disposition: Home Condition: Stable Instructions: General Patient Instructions Additional Instructions: Your urinalysis was normal today. Your test was negative. If you period does not start within the next week, follow up with gynecology. Patient Language: Estonian Follow-up/Referrals: PHYSICIAN,PREPRESS TECHNICIAN [Primary Care Provider] - Oswaldo Olivas MD [Physician] - (establish care with a [facility] for women's health) Time of Disposition: 17:34
[2025-07-03 17:26] LABS: BEDSIDEPREGUCG Negative (Negative); EDUAAPPEAR Clear; EDUABILI Negative (Negative); EDUABLOOD Negative (Negative); EDUACOLOR1 Yellow; EDUAGLUCOSE Negative (Negative); EDUAKETONE Negative (Negative); EDUALEUKO Negative (Negative); EDUANITRATE Negative (Negative); EDUAPH 5.5; EDUAPROTEIN Negative (Negative); EDUASPGRAVITY 1.030; EDUAUROBILI 0.2
== END 2025-07-03 17:41 | disposition home or self-care (01) ==
PROVIDERS: Emergency Provider Nurse Practitioner Family
DX: Z32.02 Encounter for pregnancy test, result negative (principal); F17.290 Nicotine dependence, other tobacco product, uncomplicated; I10 Essential (primary) hypertension; J45.909 Unspecified asthma, uncomplicated
CPT/HCPCS: 81003; 81025; 99212; G0463

== ENCOUNTER 2025-07-10 09:32 | Emergency (ER) | payer SELFPAY ==
--- OUTSIDE RECORDS SUMMARY | 2025-07-10 09:36 | XMS_ITS | Clinical Summary ---
Author Organization [facility] Address [address] [place] [address] Care Team Providers Care [place] Patrol Lieutenant Name Role Phone Unknown, Notinfile Primary Care [...] History Growth Chart Information Age Height Weight Mqrsql-jju-tlmu th Percentile BMI Percentile Head Circum Head [...] Comments Blood Pressure 121/72 10/31/2024 4:01 PM [employer] Pulse 72 10/31/2024 4:01 PM [employer] Temperature 36.1 C (97 F) 10/31/2024 4:01 PM [employer] Respiratory Rate 18 10/31/2024 4:01 PM [employer] Oxygen Saturation 98% 10/31/2024 4:01 PM [employer] Inhaled Oxygen Concentration - - Weight 99.8 kg (220 lb) 10/31/2024 11:19 AM [employer] Height 167.6 cm (5' 6) 10/31/2024 11:19 AM [employer] Body Mass Index 35.51 10/31/2024 11:19 AM [employer] Body Mass Index Percentile 97.30% 10/31/2024 11: 19 AM [employer] Growth Chart: CDC (Girls, 2- 20 Years) [...] age to complete this topic Insurance [facility]ETNA [facility] Care Teams [place] [employer] Lieutenant Relationship Specialty Start Date End Date Unknown, Notinfile PCP - General 09/01/22
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
[2025-07-10 09:40] VITALS: BP 114/94; PULSE 70; RESP 18; TEMP 36.2; O2SAT 100
== END 2025-07-10 09:51 | disposition home or self-care (01) ==
PROVIDERS: Emergency Provider Nurse Practitioner Family
DX: T21.12XA Burn of first degree of abdominal wall, initial encounter (principal); X15.8XXA Contact with other hot household appliances, initial encounter; J45.909 Unspecified asthma, uncomplicated; F17.290 Nicotine dependence, other tobacco product, uncomplicated; I10 Essential (primary) hypertension
CPT/HCPCS: 99211; 99213; G0463

== ENCOUNTER 2025-08-25 18:43 | Emergency (ER) | payer BC, SELFPAY ==
--- OUTSIDE RECORDS SUMMARY | 2025-08-25 18:46 | XMS_ITS | Continuity of Care Document ---
Author Name Radha Rivera Address [address] [place] [address] Organization Unknown Address [address] [place] [address] Medications No known medications Problems No known problems
--- OUTSIDE RECORDS SUMMARY | 2025-08-25 18:46 | XMS_ITS | Clinical Summary ---
Author Organization [facility] Address [address] [place] [address] Care Team Providers Care Structural Fitter Name Role Phone Unknown, Notinfile Primary Care [...] History Growth Chart Information Age Height Weight Fmbntw-mhw-dope th Percentile BMI Percentile Head Circum Head [...] Comments Blood Pressure 121/72 10/31/2024 4:01 PM CARDI[employer]ULMONARY TECHNICIAN [employer] TE[employer] Pulse 72 10/31/2024 4:01 PM CARDIOPULMONARY TECHNICIAN AND EEG TECH Temperature 36.1 C (97 F) 10/31/2024 4:01 PM CARDIOPULMONARY TECHNICIAN AND EEG TECH Respiratory Rate 18 10/31/2024 4:01 PM CARDIOPULMONARY TECHNICIAN AND EEG TECH Oxygen Saturation 98% 10/31/2024 4:01 PM CARDIOPULMONARY TECHNICIAN AND EEG TECH Inhaled Oxygen Concentration - - Weight 99.8 kg (220 lb) 10/31/2024 11:19 AM CARDIOPULMONARY TECHNICIAN AND EEG TECH Height 167.6 cm (5' 6) 10/31/2024 11:19 AM CARDIOPULMONARY TECHNICIAN AND EEG TECH Body Mass Index 35.51 10/31/2024 11:19 AM CARDIOPULMONARY TECHNICIAN AND EEG TECH Body Mass Index Percentile 97.30% 10/31/2024 11: 19 AM CARDIOPULMONARY TECHNICIAN AND EEG TECH Growth Chart: CDC (Girls, 2- 20 Years) [...] age to complete this topic Insurance [facility]ETNA [facility] Care Teams Structural Fitter Relationship Specialty Start Date End Date Unknown, Notinfile PCP - General 09/01/22
--- NOTE | 2025-08-25 18:50 | ED_ITS ---
HPI - URI/Sore Throat General Chief Complaint: Upper Respiratory Infection Stated Complaint: Upper respiratory/UTI/asthma flair Time Seen by Provider: 08/25/25 19:04 Source: patient, RN notes reviewed and old records reviewed Mode of arrival: ambulatory Limitations: no limitations History of Present Illness HPI Narrative: 19-year-old female presents to the [facility] with cough, nasal drainage and shortness of breath since yesterday. Has not taken anything for her symptoms. Reports a history of asthma. Reports that she is out of her albuterol Patient also concerned that she is having urinary frequency, takes cranberry pills. Symptoms started yesterday. Onset (ago): day(s) (1) Treatments prior to arrival: none Related Data Home Medications ?Medication ?Instructions ?Recorded ?Confirmed ?Last Taken ?Type cranberry fruit concentrate .ROUTE 08/25/25 Unknown H istory Allergies Allergy/AdvReac Type Severity Reaction Status Date / Time ibuprofen Allergy Severe Swelling Verified 08/25/25 18:59 of Lip/Tongue/Throat [place] And Derivatives Allergy Unknown Unknown Verified 08/25/25 18:59 Review of Systems Review of Systems: All systems reviewed & are unremarkable except as noted in HPI and below Constitutional: Constitutional: Reports no additional constitutional complaints ENT: Reports as per HPI Cardiovascular: Cardiovascular: Reports no additional cardiovascular complaints, Denies chest pain and Denies dyspnea Respiratory: Respiratory: Reports as per HPI, Denies chest congestion, Reports cough and Reports dyspnea Genitourinary: Genitourinary: Reports as per HPI Musculoskeletal: Musculoskeletal: Reports no additional musculoskeletal complaints Integumentary/Breasts: Skin/Breast: Reports system reviewed and no additional complaints, except as docu PMFSH Past Medical History Medical History Ear infection UTI (urinary tract infection) Anxiety Hypertension Asthma Surgical History Surgical History No pertinent past surgical history Family History Family History Mother Family history non-contributory Social History Social History Smoking status: Current every day smoker Tobacco type: e-cigarettes/vaping Alcohol intake: current Alcohol use details: social but rare Substance use type: does not use Living arrangements: with family Gender identity (if verbalized by the patient): Female Comments At the time of my signature, I reviewed and agree with the nursing past medical, surgical, social, and family history. There is no relevant family history pertinent to the patient complaint. Exam Const: General: cooperative, healthy appearing, comfortable, no acute distress, well developed, alert and well nourished Nutritional Appearance: well nourished and obese Orientation/consciousness: patient oriented x3 Limitations: no limitations HENMT: Head: normal to inspection Ears: hearing grossly normal bilaterally, external ears normal, TM's normal bilaterally, EAC's normal, mastoids normal and no periauricular adenopathy Mouth: Yes Normal oral and palatal mucosa present, Yes lip normal, Yes tongue normal and Yes moist mucous membranes Throat: posterior oropharynx normal, uvula midline and no uvular edema Eyes: General: appearance normal, both eyes and all related structures Alignment and Position: alignment normal Neck: Neck: normal visual inspection, full ROM, no lymphadenopathy and no meningeal signs Chest: Chest palpation & inspection: normal inspection of the chest Resp: Effort & Inspection: normal respiratory effort and able to speak in complete sentences Auscultation: clear to auscultation bilaterally, no crackles, no rales, no rhonchi and wheezes (Mild right upper expectory wheeze) Cardio: Rate: regular rate Skin: General skin exam: normal color and no rashes or lesions noted Neuro: General: patient oriented x3, gait normal, moves all extremities and no meningeal signs Cognition (Neuro): normal cognition Speech: normal speech Gait exam (Neuro): Normal gait present Extrem: General: normal to inspection, full ROM, capillary refill normal and normal gait Psych: Appearance: grossly normal and well kempt Mental Status: mental status grossly normal Speech and movement: Normal speech and movement present and Clear speech present Affect: normal affect Attitude: cooperative Course Course Level of Care: Express Care Visit Vital Signs Vital signs: Vital Signs Temperature 97.8 F 08/25/25 18:54 Pulse Rate 104 H 08/25/25 18:54 Respiratory Rate 20 08/25/25 18:54 Blood Pressure 150/65 H 08/25/25 18:54 Pulse Oximetry 100 08/25/25 18:54 Oxygen Delivery Room Air 08/25/25 18:54 Temperature 97.8 F 08/25/25 18:54 Pulse Rate 80 08/25/25 19:25 Respiratory Rate 20 08/25/25 19:25 Blood Pressure 150/65 H 08/25/25 18:54 Pulse Oximetry 100 08/25/25 19:25 Oxygen Delivery Room Air 08/25/25 18:54 Reviewed MDM - URI/Sore Throat MDM Narrative Medical decision making narrative: Patient sitting in exam room patient presents with 2 complaints nasal congestion, shortness of breath and cough with history of asthma, breathing treatment given. Will prescribe in inhaler. Symptoms x1 day. Offered flu and COVID patient denied any fevers or any other symptoms. Patient concern for UTI, urinary frequency is the only symptom that started yesterday. Urine dip with no acute findings Patient appropriate for outpatient treatment with close follow-up To handouts for primary care given, instructed patient to look at the website that is listed on her insurance card, explained how to look up primary care providers that do take her insurance Discharge instructions reviewed with patient, as well as provided in writing per nursing staff. The instructions also include specific and strict return/GO TO THE ER as well as f/u information. All questions have been answered, and the patient deny any further questions with discharge and discharge plan. Some parts of this dictation were generated by voice recognition software and may contain typographical and/or grammatical inaccuracies. Differential Diagnosis Differential diagnosis: Likely upper respiratory infection, otitis media, sinusitis, viral infection, bronchitis, influenza and pharyngitis Critical Care Time Critical Care Time Critical Care Time: No Discharge Plan Discharge Clinical Impression: Urinary frequency, History of asthma URI (upper respiratory infection) Qualifiers: URI type: unspecified URI Qualified Code(s): J06.9 - Acute upper respiratory infection, unspecified Patient Disposition: Home Condition: Stable Instructions: Antibiotic Form, Asthma (ED) Additional Instructions: Use albuterol 3 times a day for shortness of breath Follow-up with primary care provider If you are having a hard time finding a physician please call our [facility] liaison at [phone]. Today your blood pressure was 150/65. Please follow-up with primary care provider to have this rechecked. For new or worsening symptoms go directly to the emergency room Patient Language: Amharic Prescriptions: New albuterol sulfate 90 mcg/actuation HFA aerosol inhaler 2 puff inhalation QID PRN (Reason: shortness of breath or wheezing) Qty: 6.7 0RF No Action cranberry fruit concentrate [Azo Cranberry] .ROUTE Follow-up/Referrals: PHYSICIAN,PLANTING MACHINE OPERATOR [Primary Care Provider, Internal Medicine] Mary Urbano DO [Physician, Family Practice] Time of Disposition: 19:25
[2025-08-25 18:54] VITALS: BP 150/65; PULSE 104; RESP 20; TEMP 36.6; O2SAT 100
[2025-08-25] MEDS: IPRATROPIUM 0.5 MG/ALBUTEROL SULFATE 2.5 MG AMPUL.NEB 3 ML INHALATION (19:14)
[2025-08-25 19:25] VITALS: PULSE 80; RESP 20; O2SAT 100
== END 2025-08-25 19:30 | disposition home or self-care (01) ==
PROVIDERS: Emergency Provider Nurse Practitioner
DX: R35.0 Frequency of micturition (principal); J45.909 Unspecified asthma, uncomplicated; J06.9 Acute upper respiratory infection, unspecified; F17.290 Nicotine dependence, other tobacco product, uncomplicated; I10 Essential (primary) hypertension
CPT/HCPCS: 94640; 99213; G0463

== ENCOUNTER 2025-09-24 09:59 | Emergency (ER) | payer BC, SELFPAY ==
--- NOTE | 2025-09-24 10:10 | ED.URI ---
HPI - URI/Sore Throat General Chief Complaint: Upper Respiratory Infection Stated Complaint: ?strep Time Seen by Provider: 09/24/25 10:44 Source: patient, RN notes reviewed and old records reviewed Mode of arrival: ambulatory Limitations: no limitations History of Present Illness HPI Narrative: 19-year-old female presents to the [facility] with a sore throat since yesterday. No treatment prior to arrival patient also reports a dry cough. Related Data Allergies Allergy/AdvReac Type Severity Reaction Status Date / Time ibuprofen Allergy Severe Swelling Verified 09/24/25 10:12 of Lip/Tongue/Throat [place] And Derivatives Allergy Unknown Unknown Verified 09/24/25 10:12 Review of Systems Review of Systems: All systems reviewed & are unremarkable except as noted in HPI and below Constitutional: Constitutional: Reports no additional constitutional complaints ENT: Reports as per HPI Cardiovascular: Cardiovascular: Reports no additional cardiovascular complaints, Denies chest pain and Denies dyspnea Respiratory: Respiratory: Reports as per HPI, Denies chest congestion, Reports cough and Denies dyspnea Musculoskeletal: Musculoskeletal: Reports no additional musculoskeletal complaints Integumentary/Breasts: Skin/Breast: Reports system reviewed and no additional complaints, except as docu PMFSH Past Medical History Medical History Ear infection UTI (urinary tract infection) Anxiety Hypertension Asthma Surgical History Surgical History No pertinent past surgical history Family History Family History Mother Family history non-contributory Social History Social History Smoking status: Current every day smoker Tobacco type: e-cigarettes/vaping Alcohol intake: current Alcohol use details: social but rare Substance use type: does not use Living arrangements: with family Gender identity (if verbalized by the patient): Female Comments At the time of my signature, I reviewed and agree with the nursing past medical, surgical, social, and family history. There is no relevant family history pertinent to the patient complaint. Exam Const: General: cooperative, healthy appearing, comfortable, no acute distress, well developed, alert and well nourished Nutritional Appearance: well nourished Orientation/consciousness: patient oriented x3 Limitations: no limitations HENMT: Head: normal to inspection Ears: hearing grossly normal bilaterally, external ears normal, TM's normal bilaterally, EAC's normal, mastoids normal and no periauricular adenopathy Mouth: Yes Normal oral and palatal mucosa present, Yes lip normal, Yes tongue normal and Yes moist mucous membranes Throat: posterior oropharynx normal, uvula midline and no uvular edema Eyes: General: appearance normal, both eyes and all related structures Alignment and Position: alignment normal Neck: Neck: normal visual inspection, full ROM, no lymphadenopathy and no meningeal signs Chest: Chest palpation & inspection: normal inspection of the chest Resp: Effort & Inspection: normal respiratory effort and able to speak in complete sentences Auscultation: clear to auscultation bilaterally, no crackles, no rales, no rhonchi and no wheezes Cardio: Rate: regular rate Skin: General skin exam: normal color and no rashes or lesions noted Neuro: General: patient oriented x3, gait normal, moves all extremities and no meningeal signs Cognition (Neuro): normal cognition Speech: normal speech Gait exam (Neuro): Normal gait present Extrem: General: normal to inspection, full ROM, capillary refill normal and normal gait Psych: Appearance: grossly normal and well kempt Mental Status: mental status grossly normal Speech and movement: Normal speech and movement present and Clear speech present Affect: normal affect Attitude: cooperative Course Course Level of Care: Express Care Visit Vital Signs Vital signs: Vital Signs Temperature 98.3 F 09/24/25 10:14 Pulse Rate 93 09/24/25 10:14 Respiratory Rate 18 09/24/25 10:14 Blood Pressure 133/58 L 09/24/25 10:14 Pulse Oximetry 99 09/24/25 10:14 Oxygen Delivery Room Air 09/24/25 10:14 Temperature 98.3 F 09/24/25 10:14 Pulse Rate 93 09/24/25 10:14 Respiratory Rate 18 09/24/25 10:14 Blood Pressure 133/58 L 09/24/25 10:14 Pulse Oximetry 99 09/24/25 10:14 Oxygen Delivery Room Air 09/24/25 10:14 Reviewed MDM - URI/Sore Throat MDM Narrative Medical decision making narrative: Patient sitting in exam room. Patient is nontoxic, vitals stable. Patient presents with 1 day history of sore throat dry cough. No treatment prior to arrival. No acute findings noted on exam. strep test negative, will culture. Patient is appropriate for outpatient treatment with close follow-up Discharge instructions reviewed with patient, as well as provided in writing per nursing staff. The instructions also include specific and strict return/GO TO THE ER as well as f/u information. All questions have been answered, and the patient deny any further questions with discharge and discharge plan. Some parts of this dictation were generated by voice recognition software and may contain typographical and/or grammatical inaccuracies. Differential Diagnosis Differential diagnosis: Likely upper respiratory infection, otitis media, sinusitis, viral infection, bronchitis, influenza and pharyngitis Lab Data Labs: Lab Results 09/24/25 Range/Units 10:18 POC Grp A Strep Screen Negative (Negative) reviewed Critical Care Time Critical Care Time Critical Care Time: No Discharge Plan Discharge Clinical Impression: Acute viral pharyngitis Patient Disposition: Home Condition: Stable Instructions: Pharyngitis (ED) Additional Instructions: Your rapid strep swab was negative today at [facility]. A throat culture will be sent to the laboratory for further testing. If the test is positive, you will receive a phone call within 48 hours and an appropriate antibiotic will be initiated at that time. Your symptoms are likely due to a viral illness, which is not treated with antibiotics. Typically viral infections last 7-10 days, can linger for couple of weeks. It is very important to treat your symptoms. Drink plenty of water, Gatorade, Pedialyte, ice pops or Jell-O. - take Tylenol per package instructions as needed for pain -Antihistamine medication such as Zyrtec/Claritin/Noemi during the day can help improve symptoms. -Eat and drink things that are easy to swallow, like tea or soup, or popsicles. -Oral rinses such as: Salt water gargles and/or may use topical anesthetic (eg. Chloraseptic spray) or lozenges to relieve dryness or throat pain). -Frequent hand washing or hand cleaner and trimmer is one of the best ways to prevent spread of infection. -Using a vaporizer or humidifier at night will also help thin secretions and help with coughing up phlegm. -Follow up with primary care provider in 7-10 days if condition is not improving if you do not have a primary care provider a list has been given to you to start searching for primary care provider. - For new or worsening symptoms go directly to the nearest ER Patient Language: Kittitian Prescriptions: No Action albuterol sulfate 90 mcg/actuation HFA aerosol inhaler 2 puff inhalation QID PRN (Reason: shortness of breath or wheezing) Qty: 6.7 0RF Follow-up/Referrals: PHYSICIAN,ENRICHMENT SPECIALIST [Primary Care Provider, Internal Medicine] Fadi [facility] MD [Physician, Family Practice] Time of Disposition: 10:52
[2025-09-24 10:14] VITALS: BP 133/58; PULSE 93; RESP 18; TEMP 36.8; O2SAT 99
[2025-09-24 10:20] LABS: EDSTREPNEGPOS1 Negative (Negative)
--- OUTSIDE RECORDS SUMMARY | 2025-09-24 10:56 | XMS_ITS | Clinical Summary ---
Author Organization [facility] Address [address] [place] [address] Care Team Providers Care Material Handling Equipment Stevedore Name Role Phone Unknown, Notinfile Primary Care [...] History Growth Chart Information Age Height Weight Cexuuv-glc-axuk th Percentile BMI Percentile Head Circum Head [...] Comments Blood Pressure 121/72 10/31/2024 4:01 PM [employer] Pulse 72 10/31/2024 4:01 PM [employer] Temperature 36.1 C (97 F) 10/31/2024 4:01 PM [employer] Respiratory Rate 18 10/31/2024 4:01 PM [employer] Oxygen Saturation 98% 10/31/2024 4:01 PM [employer] Inhaled Oxygen Concentration - - Weight 99.8 kg (220 lb) 10/31/2024 11:19 AM [employer] Height 167.6 cm (5' 6) 10/31/2024 11:19 AM [employer] Body Mass Index 35.51 10/31/2024 11:19 AM [employer] Body Mass Index Percentile 97.30% 10/31/2024 11: 19 AM [employer] CHECKER Growth Chart: CDC (Girls, 2- 20 Years) [...] age to complete this topic Insurance [facility] [facility] Care Teams Material Handling Equipment Stevedore Relationship Specialty Start Date End Date Unknown, Notinfile PCP - General 09/01/22
--- OUTSIDE RECORDS SUMMARY | 2025-09-24 10:56 | XMS_ITS | Continuity of Care Document ---
Author Name Radha Rivera Address [address] [place] [address] Organization Unknown Address [address] [place] [address] Medications No known medications Problems No known problems
== END 2025-09-24 10:58 | disposition home or self-care (01) ==
PROVIDERS: Emergency Provider Nurse Practitioner
DX: J02.8 Acute pharyngitis due to other specified organisms (principal); B97.89 Other viral agents as the cause of diseases classified elsewhere; I10 Essential (primary) hypertension; F17.290 Nicotine dependence, other tobacco product, uncomplicated
CPT/HCPCS: 87081; 87880; 99213; G0463